=== PATIENT | female | born 1980 | race Caucasian/White ===

== ENCOUNTER 2023-01-30 10:53 | Emergency (ER) | payer OTHER ==
[~2023-01-30] VITALS: Ht 160 cm; Wt 63.0 kg
[2023-01-30] MEDS ORDERED: ZOFRAN8 MG PO (18:30)
[2023-01-30] MEDS ORDERED: KETO10TA2 PO (18:30)
[2023-01-30] MEDS ORDERED: TAMS0.4C PO (18:30)
== END 2023-01-30 14:08 | disposition home or self-care (01) ==
LOC: ER 10:53
DX: R10.9 Unspecified abdominal pain (principal); Z88.6 Allergy status to analgesic agent

== ENCOUNTER 2024-04-09 10:07 | Inpatient (IN) | payer OTHER ==
[~2024-04-09] VITALS: Ht 160 cm; Wt 64.9 kg
[~2024-04-09 10:07] MED LIST: KETO10TA2 PO; TAMS0.4C PO; ZOFRAN8 MG PO
[2024-04-09] MEDS ORDERED: MORPHINE SULFATE 4 MG/ML VIAL IV STA (11:17)
[2024-04-09] MEDS ORDERED: 0.9 % SODIUM CHLORIDE 1,000 ML IV STA (11:18)
[2024-04-09] MEDS ORDERED: ONDANSETRON HCL 2 MG/ML VIAL IV ONE (11:30)
[2024-04-09 12:40] LABS: HEMATOCRIT 36.7 % (36.0-45.00); HEMOGLOBIN 12.3 g/dL (12.0-15.00); MEAN CELL VOLUME 86.2 fL (80.00-100.00); MEAN CORPUSCULAR HEMOGLOBIN 28.8 pg (27.00-32.0); MEAN CORPUSCULAR HGB CONC 33.4 g/dl (32.0-36.0); PLATELET COUNT 214 K/uL (150-450); RED BLOOD COUNT 4.25 M/uL (4.00-6.00); RED CELL DISTRIBUTION WIDTH 14.5 % (11.5-14.5)
[2024-04-09] MEDS ORDERED: ONDANSETRON HCL 2 MG/ML VIAL ONE (12:51)
[2024-04-09 12:59] LABS: INR 0.99; PROTHROMBIN TIME 10.8 SECONDS (9.0-11.5)
[2024-04-09 13:07] LABS: ALBUMIN 3.5 gm/dL (3.4-5.0); BILIRUBIN TOTAL 0.51 mg/dL (0.3-1.2); BILIRUBIN,CONJUGATED 0.11 mg/dL (0.0-0.2); BILIRUBIN,UNCONJUGATED 0.4 mg/dL (0.0-0.6); CALCIUM 8.9 mg/dL (8.5-10.1); CREATININE SERUM 1.3 mg/dL (0.55-1.02); GFR 45.14; POTASSIUM 4.11 mEq/L (3.5-5.1); TOTAL PROTEIN 7.7 gm/dL (6.4-8.2)
[2024-04-09 15:29] LABS: PH,URINE 6.5 (5.0-8.0); URINE APPEARANCE Clear; URINE BILIRRUBIN Negative (NEGATIVE); URINE BLOOD Small; URINE COLOR Yellow; URINE GLUCOSE Negative (NEGATIVE); URINE KETONE 15 (NEGATIVE); URINE LEUKOCYTE Moderate; URINE NITRATE Negative; URINE PROTEIN Negative (NEGATIVE); URINE UROBILINOGEN 0.2 E.U./dl
[2024-04-09 15:30] LABS: URINE BACTERIA 1830.7 uL (0.0-1933); URINE EPITHELIAL CELLS 33.7 uL (0.0-38.8); URINE RBC 8.7 uL (0.0-20.8); URINE WBC 333.6 uL (0.0-23.2)
[2024-04-09 15:43] LABS: URINE CAST 0.15 uL (0.0-1.40)
[2024-04-09 15:44] LABS: URINE MUCUS SCANT
[2024-04-09] MEDS ORDERED: PIPERACILLIN/TAZOBACTAM SODIUM 3.375 GM in 0.9 % SODIUM CHLORIDE 100 ML IV SCH (18:19)
[2024-04-09] MEDS ORDERED: KETOROLAC TROMETHAMINE 30 MG VIAL IU ONE (18:30)
[2024-04-09] MEDS ORDERED: MORPHINE SULFATE 4 MG/ML CARTRIDGE IV PRN (18:30)
[2024-04-09] MEDS ORDERED: ACETAMINOPHEN 500 MG GEL..CAP PO PRN (18:30)
[2024-04-09] MEDS ORDERED: 0.9 % SODIUM CHLORIDE 1,000 ML IV SCH (18:30)
[2024-04-09] MEDS ORDERED: PROMETHAZINE HCL 25 MG/ML AMPUL IM PRN (18:30)
[2024-04-09] MEDS ORDERED: PIPERACILLIN/TAZOBACTAM SODIUM 3.375 GM VIAL IV ONE (18:34)
[2024-04-09] MEDS ORDERED: KETOROLAC TROMETHAMINE 30 MG VIAL ONE (18:34)
[2024-04-09 21:12] LABS: PARTIAL THROMBOPLASTIN TIME 30.5 SECONDS (22.0-34.0); PROTHROMBIN TIME 10.9 SECONDS (9.0-11.5)
[2024-04-09 21:52] VITALS: BP 106/68
[2024-04-10 00:27] VITALS: BP 90/60
[2024-04-10 04:30] VITALS: BP 90/58
[2024-04-10] MEDS ORDERED: FAMOTIDINE/PF 20 MG in 0.9 % SODIUM CHLORIDE 8 ML IV PUSH SCH (09:00)
[2024-04-10 09:28] VITALS: BP 100/50
[2024-04-10] MEDS ORDERED: IOVERSOL 320 MG/ML - 50 ML VIAL IV SCH (10:30)
[2024-04-10] MEDS ORDERED: CHLORHEXIDINE GLUCONATE 120 ML BOTTLE TOP SCH (10:30)
[2024-04-10] MEDS ORDERED: MORPHINE SULFATE 4 MG/ML VIAL IV ONE (11:15)
[2024-04-10 12:36] VITALS: BP 100/64
[2024-04-10] MEDS ORDERED: ACETAMINOPHEN 500 MG GEL..CAP PO PRN (12:45)
[2024-04-10] MEDS ORDERED: ACETAMINOPHEN 500 MG GEL..CAP PO ONE (12:45)
[2024-04-10] MEDS ORDERED: GABAPENTIN 100 MG CAPSULE PO SCH (13:00)
[2024-04-10] MEDS ORDERED: CELECOXIB 200 MG CAPSULE PO SCH (14:00)
[2024-04-10 15:33] VITALS: O2SAT 100
[2024-04-10 18:21] VITALS: BP 98/60
[2024-04-11] VITALS: BP 80/48
[2024-04-11 00:15] VITALS: BP 90/60
[2024-04-11] MEDS ORDERED: CELECOXIB 200 MG CAPSULE PO SCH (05:00)
[2024-04-11] MEDS ORDERED: FAMOTIDINE/PF 20 MG/2 ML VIAL ONE (07:30)
[2024-04-11 08:58] VITALS: BP 89/58
== END 2024-04-11 09:37 | disposition home or self-care (01) | DRG 661 ==
LOC: ER 10:09 → OB/GYN 18:40 → SEC-K 18:40 → OB/GYN 19:17
PROVIDERS: General Practice; Urology; ADMIT Obstetrics & Gynecology Gynecology; ATTEND Obstetrics & Gynecology Gynecology
PROC: BT1DZZZ Fluoroscopy of Right Kidney, Ureter and Bladder (ICD-10-PCS; 2024-04-10)
PROC: 0T768DZ Dilation of Right Ureter with Intraluminal Device, Via Natural or Artificial Opening Endoscopic (ICD-10-PCS; principal; 2024-04-10 09:15)
DX: N13.30 Unspecified hydronephrosis (principal); Z20.822 Contact with and (suspected) exposure to COVID-19; N80.103 Endometriosis of bilateral ovaries, unspecified depth